=== PATIENT | female | born 1980 | race Caucasian/White ===

== ENCOUNTER 2018-02-04 14:03 | Emergency (ER) | payer OTHER ==
--- NOTE | 2018-02-04 15:33 | EDPHY ---
H & P Time Seen by Provider: 02/04/18 14:58 HPI/ROS: CHIEF COMPLAINT: Severe right arm pain, vomiting, dizziness HISTORY OF PRESENT ILLNESS: 37-year-old female presents with severe right arm pain. Onset sharp and stabbing severe right upper extremity pain 2 nights ago while in bed. The pain was located in the right shoulder and radiated down to the hand. The pain was sharp and stabbing and severe. Associated with nausea and vomiting. She got out of bed, felt very dizzy and like she might faint. Eventually she was able to go back to sleep, and when she awoke the pain was mild. She had 1 episode of vomiting yesterday morning. She felt fairly well yesterday and did her usual activities. However, when she went back to bed last night, the pain started to recur and was associated with nausea. She got out of bed and walked around the house for a couple hours after taking aspirin. She was finally able to get back to sleep and slept well. Today she is asymptomatic, except for a slight left-sided headache, which is not atypical for her. No chest pain, shortness of breath, numbness or weakness. No recent head or neck trauma. No chiropractic manipulation. No prior similar symptoms. REVIEW OF SYSTEMS: Constitutional: No fever, no chills Eyes: No visual changes ENT: No sore throat Respiratory: No cough, no shortness of breath Cardiac: No chest pain Gastrointestinal: no abdominal pain Genitourinary: Left menstrual period 2 weeks ago, no dysuria Skin: No rash Neurological: No headache, no numbness, no weakness Psychiatric: No depression Past Medical/Surgical History: Denies Social History: Smoking Status: Never smoked Physical Exam: General Appearance: Alert, pleasant Eyes: Pupils equal and round, no conjunctival pallor or injection ENT, Mouth: Mucous membranes moist Neck: Normal inspection, no midline or paraspinous tenderness, range of motion without pain Respiratory: Normal inspection, no tenderness, Lungs are clear to auscultation Cardiovascular: Regular rate and rhythm, no murmur Gastrointestinal: Abdomen is soft and nontender Back: Normal inspection, no tenderness Neurological: Alert, oriented x3, cranial nerves II through XII intact, motor 5 /5, sensory intact to light touch, biceps DTRs 2+ bilaterally, normal gait. Skin: Warm and dry, no rash Extremities: Right upper extremity-normal inspection, no swelling or tenderness , range of motion without pain Vascular: 2+ radial pulses, capillary refill brisk Psychiatric: Mood and affect normal Constitutional: Initial Vital Signs Temperature (C) 36.7 C 02/04/18 14:06 Heart Rate 75 02/04/18 14:06 Respiratory Rate 18 02/04/18 14:06 Blood Pressure 139/91 H 02/04/18 14:06 O2 Sat (%) 99 02/04/18 14:06 O2 Delivery Mode Room Air Allergies/Adverse Reactions: No Known Allergies Allergy (Unverified 02/04/18 14:05) Home Medications: Medication Instructions Recorded Ondansetron Odt [Zofran Odt 4 mg 4 mg PO Q4 PRN #6 tab 02/04/18 (*)] Medical Decision Making - Diagnostics EKG Interpretation: EKG from urgent care reviewed by me and is normal. Normal sinus rhythm, normal intervals, no ST or T segment changes. Imaging Results: Neck CTA 02/04/18 15:25 Impression: Normal CT angiography of the carotid and vertebral basilar systems.. Note: All stenoses are calculated using NASCET Criteria. Results called to Dr. Ortega at 5:15 PM. ED Course/Re-evaluation: This patient presents with severe right upper extremity pain with associated dizziness and vomiting. PE normal now, unable to elicit pain. Clinical scenario most consistent with cervical radiculopathy, though concern for dissection, given multiple symptoms including dizziness, vomiting. For this reason CTA of the neck ordered. Other etiologies considered, including cardiac , other vascular, infectious. 17 20-CTA is unremarkable, read by Dr. Jono Do. Labs unremarkable. Results discussed with the patient. I will treat the patient for cervical radiculopathy. Follow-up with PCP in 2-3 days. Return to the emergency department promptly for worsening symptoms or any concerns. Differential Diagnosis: includes though not limited to, and in no particular order, arterial dissection , cervical radiculopathy, tumor, DVT, infection, ACS - Data Points Laboratory Results: Laboratory Results 02/04/18 16:12 02/04/18 16:12 Medications Given: Discontinued Medications Ketorolac Tromethamine (Toradol) 15 mg IVP EDNOW ONE Stop: 02/04/18 15:36 Last Admin: 02/04/18 17:04 Dose: 15 mg Departure - Departure Disposition: Home, Routine, Self-Care Clinical Impression: Cervical radiculopathy Condition: Good Instructions: Ondansetron (By mouth), Cervical Radiculopathy (ED) Additional Instructions: Ibuprofen 600 mg 3 times daily while the pain persists. Referrals: More Pleitez MD [[facility] – [place] Primary Care Provider] - As per Instructions Prescriptions: Ondansetron Odt [Zofran Odt 4 mg (*)] 4 mg PO Q4 PRN #6 tab PRN Reason: Nausea
[2018-02-04] MEDS ORDERED: KETOROLAC 15 MG/1 ML SDV IVP ONE (15:35)
[2018-02-04 16:22] LABS: PLATELET COUNT 369 10^3/uL (150-400)
[2018-02-04] MEDS ORDERED: IOPAMIDOL (ISOVUE-300) 100 ML BTL ONE (16:42)
[2018-02-04 17:18] VITALS: BP 148/99
== END 2018-02-04 17:40 | disposition home or self-care (01) ==
DX: M54.12 Radiculopathy, cervical region (principal)
CPT/HCPCS: 96374; J1885; Q9967